=== PATIENT | female | born 1975 | race Caucasian/White ===

== ENCOUNTER 2023-10-06 08:04 | Emergency (ER) | payer BC ==
--- NOTE | 2023-10-06 08:08 | ERPHSYRPT ---
- History of Present Illness Time Seen by Provider: 10/06/23 08:08 Source: patient Exam Limitations: no limitations Physician History: This is a 48-year-old white female patient who presents to the emergency department with left flank pain x 3 days that has worsened over this period of time and has radiated into the left lower quadrant and left groin. The pain has been significant enough to intermittently cause vomiting secondary to the pain. Patient has not had any diarrhea symptoms. Patient does have a history of pyelonephritis and ureterolithiasis in the past. Patient denies chest pain. Patient denies shortness of breath. Patient is allergic to morphine but has been given Dilaudid and Demerol in the past for pain control and has not had any problems with these medications. Patient has also taken [place] in the past without any ill effects. Patient has no documented liver disease. She has no documented bleeding or clotting disorders. Timing/Duration: day(s) (3), worse Method of Injury: other (No injury) Quality: radiating, sharp, stabbing Severity of Pain-Max: moderate Severity of Pain-Current: moderate Modifying Factors: Improves With: nothing Associated Symptoms: fever, nausea, vomiting, lower back pain (Left flank) Previous symptoms: same symptoms as today, no recent treatment Allergies/Adverse Reactions: morphine Allergy (Severe, Verified 10/06/23 08:16) Penicillins Allergy (Severe, Verified 10/06/23 08:16) nalbuphine [From Nubain] Adverse Reaction (Verified 10/06/23 08:16) Home Medications: Doxepin HCl 50 mg PO HS 10/06/23 [History] Quetiapine Fumarate [Seroquel] 50 mg PO HS 10/06/23 [History] Travel Risk - International Travel Have you traveled outside of the country in past 3 weeks: No - Emerging Infectious Disease Are you exhibiting symptoms associated with any current EIDs: No - Review of Systems Constitutional: Fever Eyes: No Symptoms Ears, Nose, & Throat: No Symptoms Respiratory: No Symptoms Cardiac: No Symptoms Abdominal/Gastrointestinal: Abdominal Pain (Left lower quadrant/left groin), Nausea, Vomiting, Appetite Changes, No Diarrhea, No Constipation Genitourinary Symptoms: Flank Pain (Left flank pain) Musculoskeletal: Back Pain (Left side) Skin: No Symptoms Neurological: No Symptoms Psychological: No Symptoms Endocrine: No Symptoms Hematologic/Lymphatic: No Symptoms Immunological/Allergic: No Symptoms All Other Systems: Reviewed and Negative - Past Medical History Pertinent Past Medical History: Yes - Past Surgical History Past Surgical History: Yes - Nursing Vital Signs Nursing Vital Signs: Initial Vital Signs Temperature 100.4 F 10/06/23 08:10 Pulse Rate 106 H 10/06/23 08:10 Respiratory Rate 20 10/06/23 08:10 Blood Pressure 112/67 10/06/23 08:10 O2 Sat by Pulse Oximetry 97 10/06/23 08:10 Pain Scale Pain Intensity 5 - Physical Exam General Appearance: mild distress, alert, anxiety Eye Exam: PERRL/EOMI, eyes nml inspection Ears, Nose, Throat Exam: normal ENT inspection, moist mucous membranes Neck Exam: normal inspection, non-tender, supple, full range of motion Respiratory Exam: normal breath sounds, lungs clear, airway intact, No chest tenderness, No respiratory distress Cardiovascular Exam: normal peripheral pulses, tachycardia (Mild) Gastrointestinal Exam: soft, normal bowel sounds, tenderness (Mild left lower quadrant), guarding (Plus minus left lower quadrant to palpation), No rebound Pelvic Exam: not done Rectal Exam: not done Back Exam: normal inspection, normal range of motion, CVA tenderness (Left side), other, No vertebral tenderness Extremity Exam: normal inspection, normal range of motion, pelvis stable Neurologic Exam: alert, oriented x 3, cooperative, 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, nor mal mood/affect, nml cerebellar function, nml station & gait, sensation nml Skin Exam: normal color, warm, dry Lymphatic Exam: adenopathy SpO2 Interpretation: normal O2 Delivery: Room Air - Course Nursing assessment & vital signs reviewed: Yes Ordered Tests: Active Orders 24 hr Category Date Time Status IV Insertion STAT Care 10/06/23 08:21 Completed ABDOMEN AND PELVIS W/0 CONTRAS [CT] Stat Exams 10/06/23 08:21 Completed AMYLASE Stat Lab 10/06/23 08:55 Completed CBC W DIFF Stat Lab 10/06/23 08:55 Completed CMP Stat Lab 10/06/23 08:55 Completed CULTURE,URINE Stat Lab 10/06/23 09:35 Received LIPASE Stat Lab 10/06/23 08:55 Completed UA W/RFX UR CULTURE Stat Lab 10/06/23 09:35 Completed Medication Summary Discontinued Medications Generic Name Dose Route Start Last Admin Trade Name Freq PRN Reason Stop Dose Admin Hydromorphone HCl 1 mg 10/06/23 08:21 10/06/23 09:35 Hydromorphone 1 Mg/1ml Inj IV 10/06/23 08:22 Not Given STAT ONE Hydromorphone HCl 1 mg 10/06/23 09:11 10/06/23 09:27 Hydromorphone 1 Mg/1ml Inj IM 10/06/23 09:12 1 mg STAT ONE Administration Hydromorphone HCl Confirm 10/06/23 09:20 Hydromorphone 1 Mg/1ml Inj Administered 10/06/23 09:21 Dose 1 mg .ROUTE .STK-MED ONE Hydromorphone HCl 1 mg 10/06/23 10:54 10/06/23 11:00 Hydromorphone 1 Mg/1ml Inj IV 10/06/23 10:55 1 mg STAT ONE Administration Hydromorphone HCl Confirm 10/06/23 10:59 Hydromorphone 1 Mg/1ml Inj Administered 10/06/23 11:00 Dose 1 mg .ROUTE .STK-MED ONE Sodium Chloride 1,000 mls @ 999 mls/hr 10/06/23 08:21 10/06/23 11:57 Sodium Chloride 0.9% 1000 Ml IV 10/06/23 09:21 Infused .Q1H1M STA Infusion Sodium Chloride Confirm 10/06/23 10:43 Sodium Chloride 0.9% 1000 Ml Administered 10/06/23 10:44 Dose 1,000 mls @ ud .ROUTE .STK-MED ONE Levofloxacin/Dextrose 500 mg in 100 mls @ 100 mls/hr 10/06/23 10:50 10/06/23 11:01 Levofloxacin 500mg/100ml D5w IV 10/06/23 11:49 100 mls/hr STAT STA 100 mls/hr Administration Levofloxacin/Dextrose Confirm 10/06/23 10:59 Levofloxacin 500mg/100ml D5w Administered 10/06/23 11:00 Dose 500 mg in 100 mls @ ud IV .STK-MED ONE Ketorolac Tromethamine 30 mg 10/06/23 08:21 10/06/23 09:35 Ketorolac Tromethamine 30 Mg/Ml Inj IV 10/06/23 08:22 Not Given STAT ONE Ketorolac Tromethamine 60 mg 10/06/23 09:11 10/06/23 09:25 Ketorolac Tromethamine 30 Mg/Ml Inj IM 10/06/23 09:12 60 mg STAT ONE Administration Ketorolac Tromethamine Confirm 10/06/23 09:20 Ketorolac Tromethamine 30 Mg/Ml Inj Administered 10/06/23 09:21 Dose 30 mg .ROUTE .STK-MED ONE Ketorolac Tromethamine Confirm 10/06/23 09:22 Ketorolac Tromethamine 30 Mg/Ml Inj Administered 10/06/23 09:23 Dose 30 mg .ROUTE .STK-MED ONE Prochlorperazine Edisylate 5 mg 10/06/23 08:21 10/06/23 09:36 Prochlorperazine Edisylate 10 Mg/2 Ml Vial IV 10/06/23 08:22 Not Given STAT ONE Prochlorperazine Edisylate 5 mg 10/06/23 09:12 10/06/23 09:23 Prochlorperazine Edisylate 10 Mg/2 Ml Vial IM 10/06/23 09:13 5 mg STAT ONE Administration Prochlorperazine Edisylate Confirm 10/06/23 09:20 Prochlorperazine Edisylate 10 Mg/2 Ml Vial Administered 10/06/23 09:21 Dose 10 mg .ROUTE .STK-MED ONE Lab/Rad Data: Laboratory Result Diagrams 10/06/23 08:55 10/06/23 08:55 Laboratory Results 10/06/23 10/06/23 10/06/23 Range/Units 09:35 08:55 08:55 WBC 10.0 (4.0-10.5) x10^3/uL RBC 3.94 L (4.1-5.4) x10^6/uL Hgb 11.9 L (12.0-16.0) g/dL Hct 36.1 (35-47) % MCV 91.6 (78-100) fL MCH 30.2 (26-32) pg MCHC 33.0 (32-36) g/dL RDW 12.2 (11.5-14.0) % Plt Count 228 (150-450) x10^3/uL MPV 10.2 (7.5-11.0) fL Gran % 83.1 H (36.0-66.0) % Immature Gran % (Auto) 0.2 (0.00-0.4) % Nucleat RBC Rel Count 0.0 (0.00-0.1) % Eos # (Auto) 0.02 (0-0.5) x10^3/uL Immature Gran # (Auto) 0.02 (0.00-0.03) x10^3u/L Absolute Lymphs (auto) 0.96 L (1.0-4.6) x10^3/uL Absolute Monos (auto) 0.66 (0.0-1.3) x10^3/uL Absolute Nucleated RBC 0.00 (0.00-0.01) x10^3u/L Lymphocytes % 9.6 L (24.0-44.0) % Monocytes % 6.6 (0.0-12.0) % Eosinophils % 0.2 (0.00-5.0) % Basophils % 0.3 (0.0-0.4) % Absolute Granulocytes 8.31 H (1.4-6.9) x10^3/uL Basophils # 0.03 (0-0.4) x10^3/uL Sodium 139 (135-145) mmol/L Potassium 3.8 (3.5-5.1) mmol/L Chloride 105 (98-107) mmol/L Carbon Dioxide 23 (22-30) mmol/L Anion Gap 14.9 (5-15) MEQ/L BUN 15 (7-17) mg/dL Creatinine 0.92 (0.52-1.04) mg/dL Estimated GFR 75.9 ML/MIN Glucose 119 H (74-106) mg/dL Calcium 9.3 (8.4-10.2) mg/dL Total Bilirubin 1.00 (0.2-1.3) mg/dL AST 23 (14-36) U/L ALT 22 (0-35) U/L Alkaline Phosphatase 74 (38-126) U/L Serum Total Protein 7.1 (6.3-8.2) g/dL Albumin 4.0 (3.5-5.0) g/dL Amylase 67 (30-110) U/L Lipase 32 (23-300) U/L Urine Color Yellow (Yellow) Urine Appearance Turbid A (Clear) Urine pH 6.0 (4.6-8.0) Ur Specific [place] 1.010 (1.005-1.030) Urine Protein 30 (Negative) Urine Glucose (UA) Negative (Negative) mg/dL Urine Ketones Negative (Negative) Urine Blood Moderate A (Negative) Urine Nitrite Positive A (Negative) Urine Bilirubin Negative (Negative) Urine Urobilinogen 0.2 (0.2) mg/dL Ur Leukocyte Esterase Large A (Negative) U Hyaline Cast (Auto) NONE SEEN (0-2) /LPF Urine Microscopic RBC 6-10 A (0-5) /HPF Urine Microscopic WBC >100 A (0-5) /HPF Ur Epithelial Cells None Seen (None Seen) /HPF Urine Bacteria Many A (None Seen) /HPF Urine Culture Reflexed YES (NO) - Progress Progress: improved, pain not gone completely, re-examined Progress Note: 10/06/23 08:26 My medical decision making and the assignment of moderate complexity to this patient's medical issue today is based on review of the patient's past medical history, review of the patient's medication list, review of patient drug allergy list, history present illness and physical findings on examination. This patient's workup includes placement of intravenous line, infusion normal saline solution, infusion of Compazine intravenously, infusion of Dilaudid intravenously, infusion of Toradol intravenously, amylase, lipase, urinalysis, CBC, CMP, CT scan of the abdomen pelvis without contrast. Differential diagnosis includes ureterolithiasis, pyelonephritis, diverticulitis, muscle skeletal back pain, other acute intra-abdominal or pelvic abnormality 10/06/23 10:55 CT scan of the abdomen pelvis without contrast was interpreted by the radiologist and I reviewed the impression. Impression has no mention of ureterolithiasis there is no renal stones or evidence for obstructive uropathy. There is mild fecal stasis. There are indeterminate noncalcified micronodules in both lungs. I discussed these findings with the patient. I interpreted the patient's laboratory data results. Patient has a very significant urinary tract infection/or mild to moderate pyelonephritis based on her laboratory data results and symptoms. The remainder of the data results show no significant acute, emergent findings. Counseled pt/family regarding: lab results, diagnosis, need for follow-up Medical Desision Making - Diagnostic Testing Diagnostic test were ordered, analyzed, and reviewed by me: Yes Radiological Interpretation: Reviewed by me, Teleradiologist Report - Risk of complications The pt has a mod risk of morbidity or mortality based on: Need for prescription drug management - Departure Departure Disposition: Home Clinical Impression: Pyelonephritis, Pulmonary nodule less than 1 cm in diameter with low risk for malignant neoplasm Condition: Stable Critical Care Time: No Referrals: DOCTOR,NO FAMILY [Primary Care Provider] - Follow up/PCP as directed Additional Instructions: Drink plenty of fluids. Take ibuprofen 600 mg orally with food 3 times a day for the next 5 days. Do not start plain Tylenol until after you complete your [place] 5/325 medication. Take your antibiotics and your other medications as prescribed. Follow-up with your primary care provider today, 10/06/2023, to make arrangements for follow-up appointment to be seen in the next 3 to 5 days to discuss the micronodules that are seen in the lungs on today's studies. Prescriptions: Hydrocodone/APAP 5/325 [A[place] 5/325 mg] 1 each PO Q6H PRN PRN #10 tablet MDD 4 PRN Reason: Pain Levofloxacin [Levaquin 500 MG Tablet] 500 mg PO DAILY #7 tablet
[2023-10-06 08:20] VITALS: TEMP 100.4
[2023-10-06 08:59] LABS: Absolute Neutrophil Ct (ANC) 8.31 x10^3/uL (1.4-6.9); BASOPHIL % 0.3 % (0.0-0.4); Basophil (Absolute #) 0.03 x10^3/uL (0-0.4); Eosinophil % 0.2 % (0.00-5.0); Eosinophil (Absolute #) 0.02 x10^3/uL (0-0.5); Hematocrit 36.1 % (35-47); Hemoglobin 11.9 g/dL (12.0-16.0); IMMATURE GRAN # 0.02 x10^3u/L (0.00-0.03); IMMATURE GRAN % 0.2 % (0.00-0.4); Lymphocyte (Absolute #) 0.96 x10^3/uL (1.0-4.6); Lymphocytes % 9.6 % (24.0-44.0); Mean Cell Volume 91.6 fL (78-100); Mean Corpuscular Hemoglobin 30.2 pg (26-32); Mean Platelet Volume 10.2 fL (7.5-11.0); Monocyte (Absolute #) 0.66 x10^3/uL (0.0-1.3); Monocytes % 6.6 % (0.0-12.0); Neutrophil % 83.1 % (36.0-66.0); Platelet Count 228 x10^3/uL (150-450); Red Blood Count 3.94 x10^6/uL (4.1-5.4); Red Cell Distribution Width 12.2 % (11.5-14.0)
[2023-10-06 09:13] LABS: ANION GAP 14.9 MEQ/L (5-15); Calcium 9.3 mg/dL (8.4-10.2); Creatinine 1 0.92 mg/dL (0.52-1.04); EST GLOMERULAR FILTRATION RATE 75.9 ML/MIN; Potassium 3.8 mmol/L (3.5-5.1); Total Protein 7.1 g/dL (6.3-8.2)
[2023-10-06] MEDS ORDERED: TORAdol 30 mg Injection ONE ×2 (09:20→09:22)
[2023-10-06] MEDS ORDERED: Compazine 10 MG/2 ML ONE (09:20)
[2023-10-06] MEDS ORDERED: Hydromorphone 1 mg/ml Injection ONE ×2 (09:20→10:59)
[2023-10-06] MEDS: Compazine 10 MG/2 ML IM ONE (09:23)
[2023-10-06] MEDS: TORAdol 30 mg Injection IM ONE (09:25)
[2023-10-06] MEDS: Hydromorphone 1 mg/ml Injection IM ONE (09:27)
[2023-10-06] MEDS: TORAdol 30 mg Injection IV ONE (09:35)
[2023-10-06] MEDS: Hydromorphone 1 mg/ml Injection IV ONE ×2 (09:35→11:00)
[2023-10-06] MEDS: Compazine 10 MG/2 ML IV ONE (09:36)
[2023-10-06 09:43] LABS: Appearance Turbid (Clear); Bacteria Many /HPF (None Seen); Bilirubin Negative (Negative); Blood Moderate (Negative); Epithelial Cells None Seen /HPF (None Seen); Glucose, Urine Negative (Negative); Hyaline Casts NONE SEEN /LPF (0-2); Ketones Negative (Negative); Leukocyte Esterase Large (Negative); Nitrite Positive (Negative); Protein,Urine Dip 30 (Negative); Urobilinogen 0.2 mg/dL (0.2); WBC >100 /HPF (0-5)
[2023-10-06 09:46] LABS: ADD URINE CULTURE? YES (NO)
--- NOTE | 2023-10-06 09:51 | XRAY ---
Indication: Left flank pain. History kidney stones. Multiple contiguous axial images obtained through the abdomen and pelvis without contrast. Comparison: None Lung bases demonstrate at least 3 left lower lobe and 1 right lower lobe indeterminate noncalcified micronodules, largest 4 mm on the left. No infiltrate or effusion. Heart not enlarged. No renal calculus or evidence for obstructive uropathy in either system. Noncontrasted stomach and bowel loops appear nonobstructed. Previous appendectomy and cholecystectomy. Mild/moderate diffuse scattered colonic fecal debris greatest in right hemicolon. No free fluid/air. Remaining liver, pancreas, spleen, adrenal glands, kidneys, ureters, bladder, uterus, and aorta are unremarkable for noncontrast exam. Osseous structures intact. No ventral or inguinal hernias. Impression: 1. No renal calculus or evidence for obstructive uropathy. 2. Mild diffuse fecal stasis. 3. Indeterminate noncalcified micronodules in both lung bases. Micronodules too small for PET/CT. Outside comparison studies recommended if available. If not, baseline CT chest with follow-up per Fleischner guidelines recommended.
[2023-10-06 10:21] VITALS: BP 102/64; PULSE 98; RESP 17; O2SAT 97
[2023-10-06] MEDS ORDERED: Sodium Chloride 0.9% 1000 ML 1,000 ML ONE (10:43)
[2023-10-06] MEDS: Sodium Chloride 0.9% 1000 ML 1,000 ML IV STA (10:44)
[2023-10-06] MEDS ORDERED: Levofloxacin 500MG/100ML D5W 500 MG/100 ML BAG IV ONE (10:59)
[2023-10-06] MEDS: Levofloxacin 500MG/100ML D5W 500 MG/100 ML BAG IV STA (11:01)
== END 2023-10-06 12:13 | disposition home or self-care (01) ==
LOC: ED 08:04
DX: N12 Tubulo-interstitial nephritis, not specified as acute or chronic (principal); R91.1 Solitary pulmonary nodule; R10.32 Left lower quadrant pain; Z79.891 Long term (current) use of opiate analgesic; Z79.899 Other long term (current) drug therapy
CPT/HCPCS: 36410; 36415; 74176; 76942; 80053; 81001; 82150; 83690; 85025; 87077; 87086; 87186; 96365; 96372; 96374; 99140; 99284; J1170; J1885; J1956